=== PATIENT | male | born 2000 | race American Indian/Alaskan Native ===

== ENCOUNTER 2020-06-04 17:54 | Outpatient (REF) | payer MEDICAID, SELFPAY | END 2020-06-04 17:55 | disposition home or self-care (01) | LOC: HO.LAB 17:54 | PROVIDERS: Visit Provider Internal Medicine | DX: Z20.828 Contact with and (suspected) exposure to other viral communicable diseases (principal) | CPT/HCPCS: C9803; U0003 ==